=== PATIENT | male | born 1955 | race African-American/Black ===

== ENCOUNTER 2021-10-04 12:46 | Emergency (ER) | payer MEDICAID ==
[~2021-10-04] VITALS: Ht 175.3 cm; Wt 80.0 kg
[~2021-10-04 12:46] MED LIST: AMLO10TA80 PO; HYDR25TA PO; OMEPRAZOLE; TRAMADOL
[2021-10-04 18:08] LABS: HEMATOCRIT. 30.3 % (42.0-52.0); HEMOGLOBIN. 9.4 g/dL (14.0-18.0); MEAN CORPUSCULAR VOLUME 73.9 fL (80.0-94.0); MEAN PLATELET VOLUME 7.8 fl (7.4-10.4); PLATELET 352 x1000/uL (130-400); RED CELL DISTRIBUTION WIDTH 23.6 % (11.6-14.6)
[2021-10-04 18:12] LABS: CLARITY URINE CLOUDY (CLEAR); COLOR URINE YELLOW (YELLOW); KETONES URINE TRACE (NEGATIVE); LEUKOCYTE ESTERASE URINE 2+ (NEGATIVE); NITRITE URINE POSITIVE (NEGATIVE); OCCULT BLOOD URINE 1+ (NEGATIVE); PH URINE 5.5 (4.5-8.0); PROTEIN URINE 2+ (NEGATIVE); SPECIFIC GRAVITY URINE 1.021 (1.005-1.030)
[2021-10-04 18:16] LABS: CHLORIDE 107 mEq/L (98-107)
[2021-10-04] MEDS ORDERED: CEPH500C2 MT (19:02)
[2021-10-04 19:11] LABS: PLATELET ESTIMATE NORMAL
[2021-10-04] MEDS ORDERED: CEPHALEXIN 250MG CAPSULE PO ONE (19:15)
[2021-10-04 19:32] VITALS: BP 147/88
== END 2021-10-04 19:33 | disposition home or self-care (01) ==
LOC: ER 13:34
DX: N30.00 Acute cystitis without hematuria (principal); I10 Essential (primary) hypertension; J44.1 Chronic obstructive pulmonary disease with (acute) exacerbation; Z98.890 Other specified postprocedural states
CPT/HCPCS: 36415; 80053; 81003; 85025; 87077; 87186; 99283

== ENCOUNTER 2022-09-26 21:53 | Inpatient (IN) | payer MEDICARE, MEDICAID ==
[~2022-09-26] VITALS: Ht 182.9 cm; Wt 78.9 kg
[~2022-09-26 21:53] MED LIST changes: +CEPH500C2 MT
[2022-09-27] MEDS ORDERED: SODIUM CHLORIDE 0.9% 1,000 ML IV ONE (00:15)
[2022-09-27 00:38] LABS: CHLORIDE 111 mEq/L (98-107)
[2022-09-27 00:39] LABS: BASOPHILS % 0.7 % (0.0-2.0); EOSINOPHILS % 1.1 % (0.0-5.0); HEMATOCRIT. 29.9 % (42.0-52.0); HEMOGLOBIN. 8.9 g/dL (14.0-18.0); LYMPHOCYTES % 30.1 % (20.0-50.0); MEAN CORPUSCULAR HEMOGLOBIN 20.7 pg (28.0-32.0); MEAN CORPUSCULAR VOLUME 69.4 fL (80.0-94.0); MEAN PLATELET VOLUME 9.6 fl (7.4-10.4); MONOCYTES % 5.7 % (2.0-8.0); NEUTROPHILS % 62.4 % (40.0-76.0); PLATELET 275 x1000/uL (130-400); RED BLOOD CELL COUNT 4.31 mill/uL (4.7-6.1); RED CELL DISTRIBUTION WIDTH 20.2 % (11.6-14.6)
[2022-09-27 01:07] LABS: D-DIMER 1.66 mg/L FEU (<0.50); INR 1.3; PROTHROMBIN TIME 13.4 sec (9.6-11.0)
[2022-09-27 01:10] LABS: PLATELET ESTIMATE NORMAL
[2022-09-27] MEDS ORDERED: ASPIRIN 81MG TABLET PO NR (01:45)
[2022-09-27] MEDS ORDERED: ENOXAPARIN 100MG/ML SYR SUBCUT ONE (02:00)
[2022-09-27] MEDS ORDERED: ZOLPIDEM TARTRATE 5MG TABLET PO PRN (02:30)
[2022-09-27] MEDS ORDERED: DIPHENHYDRAMINE 50MG/ML VIAL IV PRN (02:30)
[2022-09-27] MEDS ORDERED: ONDANSETRON HCL 4MG/2ML INJ IV PRN (02:30)
[2022-09-27] MEDS ORDERED: IPRATROPIUM/ALBUTEROL 0.5-3(2.5)MG/3ML NEB NEB PRN (02:30)
[2022-09-27] MEDS ORDERED: MAGNESIUM/ALUMINUM HYDROXIDE/SIMETHICONE 30ML UDC PO PRN (02:30)
[2022-09-27] MEDS ORDERED: LORAZEPAM 2MG/ML CPJ IV PRN (02:30)
[2022-09-27] MEDS ORDERED: ACETAMINOPHEN 325MG TABLET PO PRN ×2 (02:30)
[2022-09-27] MEDS ORDERED: CLONIDINE 0.1MG TABLET PO PRN (02:30)
[2022-09-27] MEDS ORDERED: ENOXAPARIN 80MG/0.8ML SYR SUBCUT NR (03:45)
[2022-09-27] MEDS ORDERED: MVI, ADULT NO.1 10 ML, FOLIC ACID 1 MG, THIAMINE HCL 100 MG in SODIUM CHLORIDE 0.9% 1,0... IV SCH ×4 (04:00)
[2022-09-27] MEDS: DILTIAZEM HCL 30MG TABLET PO SCH ×2 (05:14→12:38)
[2022-09-27 05:58] LABS: *AMPHETAMINES SCREEN URINE NEGATIVE (NEGATIVE); *BARBITURATES SCREEN URINE NEGATIVE (NEGATIVE); *BENZODIAZEPINES SCREEN URINE NEGATIVE (NEGATIVE); *COCAINE SCREEN URINE PRESUMTIVE POSITIVE (NEGATIVE); CANNABINOID URINE SCREEN PRESUMTIVE POSITIVE (NEGATIVE); METHADONE URINE SCREEN NEGATIVE (NEGATIVE); OPIATES URINE SCREEN NEGATIVE (NEGATIVE); PHENCYCLIDINE URINE SCREEN NEGATIVE (NEGATIVE)
[2022-09-27] MEDS ORDERED: CHLORDIAZEPOXIDE 25MG CAPSULE PO SCH (06:00)
[2022-09-27] MEDS: GUAIFENESIN 200MG/10ML SUGAR FREE UDC PO PRN ×2 (07:34→13:03)
[2022-09-27] MEDS ORDERED: AMLODIPINE 10MG TABLET PO SCH (09:00)
[2022-09-27] MEDS ORDERED: LISINOPRIL 10MG TABLET PO SCH ×2 (09:00→21:00)
[2022-09-27 10:00] VITALS: BP 151/100
[2022-09-27 10:33] VITALS: BP 151/100
[2022-09-27 11:26] VITALS: BP 169/100
[2022-09-27] MEDS: TAMSULOSIN HCL 0.4MG SR CAPSULE PO SCH (12:38)
[2022-09-27] MEDS: MULTIVITAMINS,THER W-MINERALS TABLET PO SCH (12:38)
[2022-09-27] MEDS ORDERED: FUROSEMIDE 40MG/4ML VIAL IVP SCH (13:30)
[2022-09-27] MEDS: IRON SUCROSE COMPLEX 100 MG/5 ML ML IV SCH (13:45)
[2022-09-27] MEDS ORDERED: HYDRALAZINE 20MG/ML VIAL IV PRN (13:45)
[2022-09-27] MEDS: FUROSEMIDE 40MG/4ML VIAL IVP SCH (13:55)
[2022-09-27 16:00] VITALS: BP 145/88
[2022-09-27] MEDS: ENOXAPARIN 80MG/0.8ML SYR SUBCUT SCH (16:00)
[2022-09-27] MEDS: DILTIAZEM HCL 60MG TABLET PO SCH (18:00)
[2022-09-27 20:00] VITALS: BP 119/83
[2022-09-28] VITALS: BP 122/80
[2022-09-28] MEDS: FUROSEMIDE 40MG/4ML VIAL IVP SCH ×2 (00:58→08:49)
[2022-09-28] MEDS: DILTIAZEM HCL 60MG TABLET PO SCH ×4 (00:59→18:19)
[2022-09-28 04:00] VITALS: BP 156/69
[2022-09-28] MEDS: ENOXAPARIN 80MG/0.8ML SYR SUBCUT SCH ×2 (05:25→18:19)
[2022-09-28 06:16] LABS: HEMOGLOBIN. 9.6 g/dL (14.0-18.0); MEAN CORPUSCULAR HEMOGLOBIN 21.4 pg (28.0-32.0); MEAN CORPUSCULAR VOLUME 69.2 fL (80.0-94.0); MEAN PLATELET VOLUME 10.1 fl (7.4-10.4); PLATELET 271 x1000/uL (130-400); RED BLOOD CELL COUNT 4.48 mill/uL (4.7-6.1); RED CELL DISTRIBUTION WIDTH 20.4 % (11.6-14.6)
[2022-09-28 06:27] LABS: CHLORIDE 107 mEq/L (98-107)
[2022-09-28 06:31] LABS: PHOSPHORUS 3.2 mg/dL (2.5-4.9)
[2022-09-28 08:00] VITALS: BP 140/96
[2022-09-28] MEDS: TAMSULOSIN HCL 0.4MG SR CAPSULE PO SCH (08:49)
[2022-09-28] MEDS: MULTIVITAMINS,THER W-MINERALS TABLET PO SCH (08:49)
[2022-09-28] MEDS: LISINOPRIL 20MG TABLET PO SCH ×2 (08:50→21:00)
[2022-09-28] MEDS ORDERED: PNEUMOCOCCAL 23-VAL P-SAC VAC 0.5 ML IM ONE (09:00)
[2022-09-28 12:00] VITALS: BP 124/76
[2022-09-28 12:49] LABS: NUCLEATED RED BLOOD CELLS 1 /100 WBC; PLATELET ESTIMATE NORMAL
[2022-09-28] MEDS: IRON SUCROSE COMPLEX 100 MG/5 ML ML IV SCH (14:11)
[2022-09-28 16:00] VITALS: BP 123/74
[2022-09-28 20:00] VITALS: BP 107/71
[2022-09-29] VITALS: BP 100/70
[2022-09-29] MEDS: FUROSEMIDE 40MG/4ML VIAL IVP SCH ×2 (01:20→13:23)
[2022-09-29 04:00] VITALS: BP 141/82
[2022-09-29] MEDS: ENOXAPARIN 80MG/0.8ML SYR SUBCUT SCH (05:12)
[2022-09-29 07:59] LABS: CHLORIDE 103 mEq/L (98-107)
[2022-09-29 08:00] VITALS: BP 132/97
[2022-09-29] MEDS: MULTIVITAMINS,THER W-MINERALS TABLET PO SCH (08:58)
[2022-09-29] MEDS: SPIRONOLACTONE 25MG TABLET PO SCH (08:59)
[2022-09-29] MEDS: LISINOPRIL 20MG TABLET PO SCH ×2 (08:59→21:00)
[2022-09-29] MEDS: POTASSIUM CHLORIDE 20MEQ TABLET SR PO SCH (08:59)
[2022-09-29] MEDS: TAMSULOSIN HCL 0.4MG SR CAPSULE PO SCH (09:00)
[2022-09-29] MEDS: DILTIAZEM HCL 300MG CAPSULE SR 24HR PO SCH (09:01)
[2022-09-29] MEDS ORDERED: POTASSIUM CHLORIDE 20MEQ TABLET SR PO NR (09:15)
[2022-09-29 12:00] VITALS: BP 118/64
[2022-09-29] MEDS: IRON SUCROSE COMPLEX 100 MG/5 ML ML IV SCH (13:23)
[2022-09-29 16:00] VITALS: BP 114/52
[2022-09-29] MEDS: APIXABAN 5 MG TABLET PO SCH (17:50)
[2022-09-29 20:00] VITALS: BP 107/68
[2022-09-30] VITALS: BP 116/65
[2022-09-30] MEDS: FUROSEMIDE 40MG/4ML VIAL IVP SCH (01:15)
[2022-09-30 04:00] VITALS: BP 120/76
[2022-09-30 08:00] VITALS: BP 101/61
[2022-09-30] MEDS: DILTIAZEM HCL 300MG CAPSULE SR 24HR PO SCH (08:47)
[2022-09-30] MEDS: SPIRONOLACTONE 25MG TABLET PO SCH (08:47)
[2022-09-30] MEDS: LISINOPRIL 20MG TABLET PO SCH (08:48)
[2022-09-30] MEDS: TAMSULOSIN HCL 0.4MG SR CAPSULE PO SCH (08:48)
[2022-09-30] MEDS: MULTIVITAMINS,THER W-MINERALS TABLET PO SCH (08:49)
[2022-09-30] MEDS: APIXABAN 5 MG TABLET PO SCH ×2 (08:49→16:02)
[2022-09-30] MEDS: POTASSIUM CHLORIDE 20MEQ TABLET SR PO SCH (08:49)
[2022-09-30 11:27] VITALS: BP 122/69
[2022-09-30 12:00] VITALS: BP 139/94
[2022-09-30] MEDS ORDERED: FUROSEMIDE 40MG TABLET PO SCH (17:00)
[2022-09-30] MEDS ORDERED: FERROUS SULFATE 325MG TABLET PO SCH (17:40)
== END 2022-09-30 16:55 | DRG 280 ==
LOC: ER 21:53 → 8WST 09-27 02:06 → ENRESERV 09-27 05:39
PROVIDERS: ADMIT Internal Medicine; ATTEND Internal Medicine
DX: I11.0 Hypertensive heart disease with heart failure (principal); I21.4 Non-ST elevation (NSTEMI) myocardial infarction; I50.23 Acute on chronic systolic (congestive) heart failure; J44.1 Chronic obstructive pulmonary disease with (acute) exacerbation; I42.9 Cardiomyopathy, unspecified; Z20.822 Contact with and (suspected) exposure to COVID-19; F14.10 Cocaine abuse, uncomplicated; N40.0 Benign prostatic hyperplasia without lower urinary tract symptoms; F10.10 Alcohol abuse, uncomplicated; E78.5 Hyperlipidemia, unspecified; M21.371 Foot drop, right foot; R26.9 Unspecified abnormalities of gait and mobility; F19.10 Other psychoactive substance abuse, uncomplicated; M21.372 Foot drop, left foot; D50.9 Iron deficiency anemia, unspecified; R74.01 Elevation of levels of liver transaminase levels; I51.3 Intracardiac thrombosis, not elsewhere classified; G62.9 Polyneuropathy, unspecified; R53.81 Other malaise; L97.509 Non-pressure chronic ulcer of other part of unspecified foot with unspecified severity; Z59.00 Homelessness unspecified; Z82.49 Family history of ischemic heart disease and other diseases of the circulatory system
CPT/HCPCS: 36415; 71045; 80048; 80053; 80305; 83540; 83550; 83735; 83880; 84100; 84443; 84484; 85025; 85379; 87426; 90732; 93005; 93306; 94640; 97162; 99285; C9803; J1650; J1940; J2060; J3411; J3490; J7030